=== PATIENT | male | born 1985 | race Caucasian/White ===

== ENCOUNTER 2021-02-14 00:43 | Emergency (ER) | payer SELFPAY ==
[~2021-02-14] VITALS: Ht 172.7 cm; Wt 95.3 kg
[2021-02-14 00:45] VITALS: BP 109/49
--- NOTE | 2021-02-14 00:45 | NUR ---
35 YO/M BIBA, per [facility] family called [facility] d/t patient drinking alot of alcohol, becoming aggressive, and then lethargic. Per [facility] they placed patient in restraints d/t patient attempting to hit and kick [facility] personel. Patient laying in bed, mumbling words, attempting to hit and kick staff. Patient is not following commands at this time. Patient breathing even and unlabored, chest expansion symmetrical. S1S2 present. Patient laying in bed w soft restraints d/t attempting to hit and kick staff. Patient bed locked in lowest position, hob slightly elevated, x2 side rails up for patient safety. unable to obtain PMH unable to obtain allergy information
--- NOTE | 2021-02-14 00:47 | NUR ---
PT MARCELO BLS. TAKEN TO BED 7
--- NOTE | 2021-02-14 01:23 | NUR ---
Labs drawn and handed to Sydney from jose.
[2021-02-14 01:55] LABS: BASOPHILS # (AUTO) 0.2 K/uL (0.00-0.22); BASOPHILS % (AUTO) 2.5 % (0.0-2.0); EOSINOPHILS # (AUTO) 0.1 K/uL (0-0.4); HEMATOCRIT 44.3 % (36-52); HEMOGLOBIN 15.5 g/dL (12.0-18.0); LYMPHOCYTES # (AUTO) 1.9 K/uL (2.0-11.5); LYMPHOCYTES % (AUTO) 31.7 % (20.5-51.1); MEAN CORPUSCULAR HEMOGLOBIN 34 pg (27-31); MEAN CORPUSCULAR HGB CONC 35 g/dL (33-37); MONOCYTES # (AUTO) 0.5 K/uL (0.8-1.0); NEUTROPHILS # (AUTO) 3.4 K/uL (1.8-7.7); NEUTROPHILS % (AUTO) 55.8 % (42.2-75.2); PLATELET COUNT (AUTO) 215 K/uL (140-450); RED BLOOD CELL COUNT(AUTO) 4.57 MIL/uL (4.20-6.10); RED CELL DISTRIBUTION WIDTH 12.5 % (11.6-13.7); WHITE BLOOD COUNT (AUTO) 6.1 K/uL (4.8-10.8)
[2021-02-14] MEDS: LORazepam 2 MG/ML VIAL IVP ONE (02:03)
[2021-02-14] MEDS: HALOPERIDOL IM 5 MG/ML VIAL IM ONE (02:04)
--- NOTE | 2021-02-14 02:20 | NUR ---
Patient asleep, restraints discontinued.
[2021-02-14 02:21] LABS: ALBUMIN 3.9 g/dL (3.4-5.0); ANION GAP 13.7 (8-16); ASPARTATE AMINOTRANSFERASE 34 U/L (15-37); CARBON DIOXIDE 26.4 mmol/L (21-32); CHLORIDE 101 mmol/L (98-107); GFR ARICAN-AMERICAN 111 mL/min (>90); GLUCOSE 105 mg/dL (74-106); POTASSIUM 3.1 mmol/L (3.5-5.1); SODIUM SERUM 138 mmol/L (136-145); TOTAL BILIRUBIN 0.3 mg/dL (0.0-1.0); UREA NITROGEN, BLOOD 12 mg/dL (7-18)
[2021-02-14 02:30] LABS: SALICYLATE < 2.8 mg/dL (2.8-20.0)
[2021-02-14 02:31] LABS: ACETAMINOPHEN < 0.5 ug/ml (10-30)
[2021-02-14 03:38] LABS: BARBITURATE, URINE NEGATIVE ng/ml (NEG <=200); BENZODIAZEPINE, URINE NEGATIVE ng/mL (NEG <=200); CANNABINOID, URINE NEGATIVE ng/mL (NEG <=50); COCAINE, URINE NEGATIVE ng/mL (NEG <=300); OPIATE, URINE NEGATIVE ng/mL (NEG <=2000); PHENCYCLIDINE SCREEN,URINE NEGATIVE ng/mL (NEG <=25)
[2021-02-14 03:57] LABS: APPEARANCE,URINE CLEAR (CLEAR); COLOR,URINE YELLOW (YELLOW); PH,URINE 5.5 (5.0-9.0)
[2021-02-14 03:58] LABS: BILIRUBIN,URINE NEGATIVE (NEGATIVE); BLOOD, URINE 1+ (NEGATIVE); LEUKOCYTE ESTERASE ,URINE NEGATIVE (NEGATIVE); NITRITE, URINE NEGATIVE (NEGATIVE); UGLUCOSE NEGATIVE (NEGATIVE)
[2021-02-14 03:59] LABS: RBC,URINE 0-5 /HPF (0-5); WBC,URINE NONE SEEN /HPF (0-5)
--- NOTE | 2021-02-14 04:57 | NUR ---
PT TAKEN TO CT
--- NOTE | 2021-02-14 05:10 | NUR ---
PT RETURN FROM CT
--- NOTE | 2021-02-14 05:15 | NUR ---
Unable to obtain EKG, patient will not stay still for the EKG. AIMEE made aware.
[2021-02-14] MEDS ORDERED: AZITHROMYCIN 500 MG in DEXTROSE 5% 250 ML IV ONE (05:35)
--- NOTE | 2021-02-14 07:04 | NUR ---
Dr. Matt examining patient.
[2021-02-14] MEDS ORDERED: cefTRIAXone 1,000 MG VIAL ONE (07:24)
[2021-02-14] MEDS: ONDANSETRON 4 MG/2 ML VIAL IVP ONE (07:36)
--- NOTE | 2021-02-14 08:05 | NUR ---
PER DR MOSCOSO WILL SWITCH MEDICATION FROM IV TO PO MEDICATIONS.
[2021-02-14] MEDS: AMOXIL/CLAVULANATE 875/125 MG 1 TAB PO ONE ×2 (09:02→09:05)
[2021-02-14] MEDS: AZITHROMYCIN 250 MG TAB PO ONE (09:05)
--- NOTE | 2021-02-14 10:00 | NUR ---
PT RESTING WITH EYES CLOSED, BREATHING EVEN AND UNLABORED. NO DISTRESS NOTED.
--- NOTE | 2021-02-14 12:00 | NUR ---
PT RESTING WITH EYES CLOSED, BREATHING EVEN AND UNLABORED. NO DISTRESS NOTED.
--- NOTE | 2021-02-14 13:50 | NUR ---
PT WOKEN UP, ALERT AND AWAKE, BREATHING EVEN AND UNLABORED.
--- NOTE | 2021-02-14 13:53 | NUR ---
PT ABLE TO AMBULATE WITH EVEN AND STEADY GAIT TO BATHROOM. ERMD MADE AWARE
[2021-02-14] MEDS ORDERED: AMOX1TAB8 PO (13:57)
--- NOTE | 2021-02-14 14:00 | NUR ---
Patient discharged with v/s stable. Written and verbal after care instructions about alcohol intoxication, aspiration pneumonia given and explained. Patient alert, oriented and verbalized understanding of instructions. Ambulatory with steady gait. All questions addressed prior to discharge. ID band removed. Patient advised to follow up with PMD. Rx of amox-clav given. Patient educated on indication of medication including possible reaction and side effects. Opportunity to ask questions provided and answered.
[2021-02-14 14:05] VITALS: BP 100/63
== END 2021-02-14 14:00 | disposition home or self-care (01) ==
LOC: MED 00:43
DX: F10.129 Alcohol abuse with intoxication, unspecified (principal); E87.6 Hypokalemia; Z20.822 Contact with and (suspected) exposure to COVID-19
CPT/HCPCS: 36415; 70450; 71045; 80053; 80305; 81001; 82550; 84484; 85025; 87426; 96372; 96374; 96375; 99291; C1758; G0480; G0482; J0696; J1630; J2060; J2405